=== PATIENT | male | born 1985 | race Caucasian/White ===

== ENCOUNTER 2017-03-06 19:36 | Emergency (ER) | payer OTHER ==
[2017-03-06 19:43] VITALS: RESP 14; TEMP 97.5
--- NOTE | 2017-03-06 20:27 | EDPHY ---
H & P Time Seen by Provider: 03/06/17 19:38 HPI/ROS: CHIEF COMPLAINT: left index finger laceration HISTORY OF PRESENT ILLNESS: 32-year-old left hand dominant male presents with a laceration to his left index finger from a metal shelving unit at work. He denies numbness or tingling to this finger, tetanus is up-to-date, no other complaints. Smoking Status: Never smoked Physical Exam: GEN: Awake, alert, oriented, no acute distress RESP: nl resp effort MSK: Left index finger with full active flexion and extension against resistance at MCP, PIP and DIP joint, 2 point discrimination intact SKIN: 0.5 cm superficial horizontal laceration to left index finger over PIP joint Constitutional: Initial Vital Signs Temperature (C) 36.4 C 03/06/17 19:39 Heart Rate 78 03/06/17 19:39 Respiratory Rate 14 03/06/17 19:39 Blood Pressure 132/88 H 03/06/17 19:39 O2 Sat (%) 94 03/06/17 19:39 O2 Delivery Mode Room Air Allergies/Adverse Reactions: No Known Allergies Allergy (Unverified 03/06/17 19:39) Home Medications: Medication Instructions Recorded NK [No Known Home Meds] 03/06/17 MDM/Departure - MDM Procedures: Procedure: Laceration repair. Verbal consent was obtained from the patient. The 0.5 cm laceration on the left index finger was not anesthetized. 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 Next, the wound was explored to its base with a gloved finger. There were no deep structures involved. No tendon injury was identified. No vascular injury was identified. No foreign bodies were identified. The wound was repaired with steri strips and finger splint. The wound repair was simple. The procedure was performed by myself. Tetanus and antibiotic status were addressed. - Depart Disposition: Home, Routine, Self-Care Clinical Impression: Laceration of left index finger Qualifiers: Encounter type: initial encounter Damage to nail status: without damage Foreign body presence: without foreign body Qualified Code(s): S61.211A - Laceration without foreign body of left index finger without damage to nail, initial encounter Condition: Good Instructions: Finger Laceration (ED) Additional Instructions: Keep dressing and finger splint in place for 72 hours, then you may remove. Keep Steri-Strip in place until it falls off. Wear finger splint at all times for 7-10 days until laceration is healed. Return to the emergency department for increased pain, redness, swelling, fevers, any new symptoms or concerns. Stand Alone Forms: Work Comp Follow Up Referrals: [facility] [Other] - As per Instructions
[2017-03-06 21:15] VITALS: BP 123/77; PULSE 77; O2SAT 98
== END 2017-03-06 21:10 | disposition home or self-care (01) ==
DX: S61.211A Laceration without foreign body of left index finger without damage to nail, initial encounter (principal); W26.8XXA Contact with other sharp object(s), not elsewhere classified, initial encounter; Y99.0 Civilian activity done for income or pay
CPT/HCPCS: L3925